=== PATIENT | female | born 1945 | race Caucasian/White ===

== ENCOUNTER 2016-10-05 09:45 | Emergency (ER) | payer MEDICARE ==
[~2016-10-05] VITALS: Ht 162.6 cm; Wt 65.0 kg
[2016-10-05 09:51] VITALS: BP 132/66; PULSE 67; RESP 16; TEMP 97.5; O2SAT 96
[2016-10-05] MEDS ORDERED: IBUP400T20 PO (10:01)
--- NOTE | 2016-10-05 10:06 | PD ---
HPI Chief Complaint: Musculoskeletal Complaint Time Seen by Provider: 09:56 Travel History International Travel<30 days: No Contact w/Intl Traveler<30days: No Traveled to known affect area: No History of Present Illness HPI Skin otherwise healthy 71-year-old woman presents emergency Department intermittent left leg pain swelling and redness. She had arthroscopic knee surgery in June. She also has what sounds like an inflammatory synovial cyst in the lateral knee removed. That same time. Since in she's done well but over the past week or 2 she's noticed intermittent pain swelling or redness of the leg. She describes and throbbing achiness in her calf. Symptoms seem to be worse after she rides her bike. She has been able to keep up with her normal activities includes 10 miles bike riding daily. She otherwise had been feeling generally well and healthy. History Past Medical History Medical History: Denies Significant Hx Tetanus Vaccination: Unknown Influenza Vaccination: Yes Social History Alcohol Use: Yes (rare) Tobacco Use: No Allergies-Medications (Allergen,Severity, Reaction): Coded Allergies: No Known Allergies (Unverified , 10/05/16) Reported Meds & Prescriptions Reported Meds & Active Scripts Active Reported Ibuprofen 400 Mg Tab 400 Mg PO Q8H PRN Review of Systems Except as stated in HPI: all other systems reviewed are Neg Physical Exam Narrative GENERAL: Well-appearing 71-year-old woman, no acute distress. SKIN: Warm and dry. CARDIOVASCULAR: Warm and well perfused. RESPIRATORY: Normal rate and effort. MUSCULOSKELETAL: Focused examination of the left lower shoulder may reveals grossly normal appearance of the knee and calf. Well-healed surgical scars in the knee from her previous arthroscopic knee surgery. Full range of motion. Good pulses in the leg. No calf tenderness. No palpable cords. No appreciable edema or swelling at this point. NEUROLOGICAL: Awake and alert. No gross deficits. Data Data Last Documented VS Vital Signs Date Time Temp Pulse Resp B/P Pulse Ox O2 Delivery O2 Flow Rate FiO2 10/05/16 09:51 97.5 67 16 132/66 96 Orders Us Leg Venous Doppler (10/05/16 ) [facility] Medical Decision Making Medical Screen Exam Complete: Yes Emergency Medical Condition: Yes Interpretation(s) Left leg ultrasound: Normal. No DVT. Differential Diagnosis DVT, dependent edema, inflammation, cellulitis, PID, other Narrative Course Medical decision making INITIAL: This 71-year-old woman, otherwise healthy, with intermittent left leg swelling and redness after her arthroscopic knee surgery. She looks well. Chief concern B for DVT. I think this is unlikely. We'll check ultrasound. No evidence of infection or cellulitis. Good pulses throughout evidence of arterial insufficiency. We'll recommend outpatient follow-up is symptoms persist. Diagnosis Primary Impression: Leg swelling Additional Instructions: Keep leg elevated as needed to reduce swelling. Continue normal activities. Follow-up with her primary doctor in the next one to 2 weeks if symptoms persist. Med/Other Pt SpecificInfo: No Change to Meds Disposition: 01 DISCHARGE HOME Condition: Stable Oliverio Rodriguez MD Oct 05, 2016 10:06
--- NOTE | 2016-10-05 11:36 | RADHPO ---
EXAM DATE/TIME: 10/05/2016 11:16 [facility] COMPARISON: No previous studies available for comparison. INDICATIONS : Left leg redness and pain. MEDICAL HISTORY : Left leg redness and pain. SURGICAL HISTORY : Arthroscopic left knee surgery and cyst removed June 2016. ENCOUNTER: Initial ACUITY: 2 weeks PAIN SCORE: 2/10 LOCATION: Left leg. TECHNIQUE: Venous ultrasound of the leg was performed from the inguinal ligament to the proximal calf. Real-chandana e, color Doppler and spectral tracing, compression and augmentation techniques were used. FINDINGS: There is normal compressibility of the deep venous system from the inguinal region to the proximal ca lf. No echogenic clot is seen in the lumen of the common femoral, femoral, popliteal, and posterior tibial veins. There is a normal response of the venous system to proximal and distal augmentation an d respiration. CONCLUSION: Normal examination. Kahri Akhtar MD on October 05, 2016 at 11:34 Board Certified Radiologist. This report was verified electronically.
== END 2016-10-05 11:50 | disposition home or self-care (01) ==
LOC: PHEFT 09:45
DX: R60.0 Localized edema (principal); M79.605 Pain in left leg
CPT/HCPCS: 93971